=== PATIENT | male | born 1985 | race Caucasian/White ===

== ENCOUNTER 2023-03-28 16:54 | Emergency (ER) | payer OTHER ==
[2023-03-28] MEDS ORDERED: Cyclobenzaprine 10 MG Tab PO ONE (17:32)
[2023-03-28] MEDS ORDERED: Ketorolac 30 MG/ML SDV IM ONE (17:32)
[2023-03-28] MEDS ORDERED: Acetaminophen/HYDROcodone 325-5 MG Tab PO ONE (17:32)
[2023-03-28] MEDS ORDERED: Morphine 4 MG/ML VIAL IM ONE (18:59)
== END 2023-03-28 19:14 | disposition home or self-care (01) ==
LOC: FB.ED 16:54
DX: M54.10 Radiculopathy, site unspecified (principal); M54.30 Sciatica, unspecified side
CPT/HCPCS: 96372; 99283; A9270; J1885; J2270

== ENCOUNTER 2023-05-22 19:38 | Emergency (ER) | payer OTHER | END 2023-05-22 21:49 | disposition home or self-care (01) | LOC: FB.ED 19:38 | DX: S61.213A Laceration without foreign body of left middle finger without damage to nail, initial encounter (principal); W26.0XXA Contact with knife, initial encounter | CPT/HCPCS: 12001; 99282 ==

== ENCOUNTER 2023-05-23 14:50 | Emergency (ER) | payer OTHER ==
[2023-05-23] MEDS ORDERED: Lidocaine 2% 20 ML MDV INFILT ONE (14:51)
[2023-05-23] MEDS ORDERED: Cephalexin 500 MG Cap PO ONE (14:51)
== END 2023-05-23 15:50 | disposition home or self-care (01) ==
LOC: FB.ED 14:50
DX: T81.31XA Disruption of external operation (surgical) wound, not elsewhere classified, initial encounter (principal)
CPT/HCPCS: 12001; 99283; A9270

== ENCOUNTER 2023-11-21 09:26 | Emergency (ER) | payer OTHER ==
[2023-11-21] MEDS: Ketorolac 30 MG/ML SDV IM ONE (10:03)
[2023-11-21] MEDS: Colchicine 0.6 MG Tab PO ONE (10:04)
== END 2023-11-21 11:33 | disposition home or self-care (01) ==
LOC: FB.ED 09:26
DX: S92.521A Displaced fracture of middle phalanx of right lesser toe(s), initial encounter for closed fracture (principal); M10.9 Gout, unspecified; F17.210 Nicotine dependence, cigarettes, uncomplicated; I10 Essential (primary) hypertension; Z79.899 Other long term (current) drug therapy; Z86.19 Personal history of other infectious and parasitic diseases; X58.XXXA Exposure to other specified factors, initial encounter
CPT/HCPCS: 36415; 73610-RT; 73630-RT; 84550; 85379; 96372; 99283; 99284; A9270-GY; J1885